=== PATIENT | male | born 1970 | race American Indian/Alaskan Native ===

== ENCOUNTER 2017-02-10 14:06 | Observation (INO) | payer SELFPAY ==
[2017-02-10] MEDS ORDERED: Sodium Chloride 0.9% 10 ML Syringe FLUSH PRN (14:08)
[2017-02-10] MEDS ORDERED: Famotidine 20 MG/2 ML SDV IVPUSH ONE (14:08)
[2017-02-10] MEDS ORDERED: Sodium Chloride 0.9% 1,000 ML IV ONE (14:08)
[2017-02-10] MEDS ORDERED: Aspirin 81 MG Tab.Chew PO ONE (14:08)
[2017-02-10] MEDS ORDERED: Sodium Chloride 0.9% 2.5 ML Syringe FLUSH PRN (14:08)
[2017-02-10] MEDS ORDERED: Aspirin 81 MG Tab.Chew ONE (14:12)
--- NOTE | 2017-02-10 14:14 | EDM.PDOC ---
ED HISTORY OF PRESENT ILLNESS - General Chief Complaint: Cardiovascular Problem Stated Complaint: CHEST PAIN Time Seen by Provider: 02/10/17 14:13 Source of Information: Reports: Patient History Limitations: Reports: No limitations - History of Present Illness INITIAL COMMENTS - FREE TEXT/NARRATIVE: HISTORY AND PHYSICAL: [46-year-old male who presents with chest that is midsternal He has had a previous PR when he was under anesthesia] History of Present Illness: [Shortness of breath the pain started last night Returned this morning substernal chest pain not being relieved as not taking any medication at home States that he used to be and his kept on top of his meds now he doesn't take anything He was on blood pressure medications but stopped 2 years ago. 46-year-old gentleman who has history of having PR during surgery History of hypertension and COPD. He has a local doctor but has not seen him in some time History 2 prior kidney stone which passed spontaneously at home He has been seen here for disc disease at the L5-S1 He denies any trauma falls or neurovascular changes no bowel or bladder loss No blood in his stool No urine retention] Continues to smoke half a pack daily 30+ years Review of Systems: As per history of present illness and below otherwise all systems reviewed and negative. Past medical history: As per history of present illness and as reviewed below otherwise noncontributory. Surgical history: As per history of present illness and as reviewed below otherwise noncontributory. Social history: No reported history of drug or alcohol abuse. Family history: As per history of present illness and as reviewed below otherwise noncontributory. Physical exam: Alert oriented gentleman who has discussed this appropriately and follows directions of the staff HEENT: Atraumatic, normocehpalic, pupils reactive, negative for conjunctival pallor or scleral icterus, mucous membranes moist, throat clear, neck supple, nontender, trachea midline. Lungs: Clear to auscultation, breath sounds equal bilaterally, chest non tender. Very diminished breath sounds Heart: S1S2, regular, negative for clicks, rubs, or JVD. Abdomen: Soft, nondistended, nontender. Negative for masses or hepatossplenmegaly. Negative for costovertebral tenderness. Pelvis: Stable nontender. Genitourinary: Deferred. Rectal: Deferred Extremities: Atraumatic, negative for cords or calf pain. Neurovascular unremarkable. Neuro: Awake, alert, oriented. Cranial nerves II through XII unremarkable. Cerebellum unremarkable. Motor and sensory unremarkable throughout. Exam nonfocal. This case with ; who has accepted patient for observation on telemetry Diagnostics: [CBC CMP troponin amylase lipase chest XRAY, BNP EKG] Therapeutics: [Nitrostat/ ASA] Impression: [Atypical chest pain R/O ACS] Plan: Observation on telemetry[] Definitive disposition and diagnosis as appropriate pending reevaluation and review of above. Timing/Duration: Reports: Hour(s): Severity: moderate Location, General: Reports: chest Quality: Reports: Stabbing Improves with: Reports: None Associated Symptoms (General): Reports: shortness of breath - Related Data Allergies/ADRs: Allergies Allergy/AdvReac Type Severity Reaction Status Date / Time morphine Allergy Difficulty Verified 02/10/17 14:11 Swallowing Home Meds: Home Meds . [No Known Home Meds] 12/07/14 [History] Past Medical History - Past Surgical History Other HEENT Surgeries/Procedures: right mastoidectomy Social & Family History - Tobacco Use Smoking Status *Q: Current Every Day Smoker Years of Tobacco use: 30 - Alcohol Use Days Per Week of Alcohol Use: 0 - Recreational Drug Use Recreational Drug Use: No Recreational Drug Type: Reports: Marijuana/Hashish, Methamphetamine Recreational Drug Use Frequency: Not Used In Over 6 Months ED ROS GENERAL - Review of Systems Review Of Systems: ROS reveals no pertinent complaints other than HPI. ED EXAM, GENERAL - Physical Exam Exam: See Below (see dictation) EKG INTERPRETATION EKG Date: 02/10/17 Rhythm: other (Sinus tachycardia) [place]: LAD-left axis deviation (Borderline) P-wave: present QRS: normal ST-T: normal QT: normal Comparison: NA - no prior EKG Course - Vital Signs Last Recorded V/S: Last Vital Signs Temp 37.3 C 02/10/17 14:11 Pulse 105 H 02/10/17 14:21 Resp 20 02/10/17 14:11 BP 147/90 H 02/10/17 14:28 Pulse Ox 94 L 02/10/17 14:11 - Orders/Labs/Meds Orders: Active Orders 24 hr Category Date Time Status Cardiac Monitoring [RC] . DIRECTED Care 02/10/17 14:08 Active EKG Documentation Completion [RC] STAT Care 02/10/17 14:08 Active Oxygen Therapy [RC] ASDIRECTED Care 02/10/17 14:08 Active RT Aerosol Therapy [RC] ASDIRECTED Care 02/10/17 14:29 Active Chest 1V Frontal [CR] Stat Exams 02/10/17 14:08 Taken B-TYPE NATRIURETIC PEPTIDE,BNP [CHEM] Stat Lab 02/10/17 14:12 Received UA W/MICROSCOPIC [URIN] Stat Lab 02/10/17 14:08 Uncollected Sodium Chloride 0.9% [Saline Flush] Med 02/10/17 14:08 Active 10 ml FLUSH ASDIRECTED PRN Sodium Chloride 0.9% [Saline Flush] Med 02/10/17 14:08 Active 2.5 ml FLUSH ASDIRECTED PRN Saline Lock Insert [OM.PC] Stat Oth 02/10/17 14:08 Ordered Medication Orders Sodium Chloride (Saline Flush) 10 ml FLUSH ASDIRECTED PRN PRN Reason: Keep Vein Open Last Admin: 02/10/17 14:20 Dose: 10 ml Sodium Chloride (Saline Flush) 2.5 ml FLUSH ASDIRECTED PRN PRN Reason: Keep Vein Open Last Admin: 02/10/17 14:20 Dose: 2.5 ml Labs: Laboratory Tests 02/10/17 02/10/17 02/10/17 Range/Units 14:12 14:12 14:12 WBC 7.81 (4.0-11.0) K/uL RBC 5.08 (4.50-5.90) M/uL Hgb 15.3 (13.0-17.0) g/dL Hct 44.8 (38.0-50.0) % MCV 88.2 (80.0-98.0) fL MCH 30.1 (27.0-32.0) pg MCHC 34.2 (31.0-37.0) g/dL RDW Std Deviation 45.4 (28.0-62.0) fl RDW Coeff of [place] 14 (11.0-15.0) % Plt Count 329 (150-400) K/uL MPV 9.90 (7.40-12.00) fL Neut % (Auto) 64.6 (48.0-80.0) % Lymph % (Auto) 25.5 (16.0-40.0) % [place] % (Auto) 7.3 (0.0-15.0) % Eos % (Auto) 2.3 (0.0-7.0) % Baso % (Auto) 0.3 (0.0-1.5) % Neut # (Auto) 5.1 (1.4-5.7) K/uL Lymph # (Auto) 2.0 (0.6-2.4) K/uL [place] # (Auto) 0.6 (0.0-0.8) K/uL Eos # (Auto) 0.2 (0.0-0.7) K/uL Baso # (Auto) 0.0 (0.0-0.1) K/uL Nucleated RBC % 0.0 /100WBC Nucleated RBCs # 0 K/uL INR 0.98 (0.86-1.11) Sodium 140 (136-146) mmol/L Potassium 4.0 (3.5-5.1) mmol/L Chloride 107 (98-110) mmol/L Carbon Dioxide 22 (21-31) mmol/L BUN 14 (6.0-23.0) mg/dL Creatinine 1.0 (0.6-1.5) mg/dL Est Cr Clr Drug Dosing 95.31 mL/min Estimated GFR (MDRD) > 60.0 ml/min Glucose 108 (60-110) mg/dL Calcium 9.0 (8.8-10.8) mg/dL Total Bilirubin 0.4 (0.1-1.5) mg/dL AST 23 (5-40) IU/L ALT 22 (8-54) IU/L Alkaline Phosphatase 88 (40-150) Troponin I (0.0-0.29) NG/ML Total Protein 7.4 (6.0-8.0) g/dL Albumin 4.3 (3.5-5.0) g/dL Globulin 3.1 (2.0-3.5) g/dL Albumin/Globulin Ratio 1.4 (1.3-2.8) Amylase 44 (10-90) U/L Lipase 23 (7-80) U/L 02/10/17 Range/Units 14:12 WBC (4.0-11.0) K/uL RBC (4.50-5.90) M/uL Hgb (13.0-17.0) g/dL Hct (38.0-50.0) % MCV (80.0-98.0) fL MCH (27.0-32.0) pg MCHC (31.0-37.0) g/dL RDW Std Deviation (28.0-62.0) fl RDW Coeff of [place] (11.0-15.0) % Plt Count (150-400) K/uL MPV (7.40-12.00) fL Neut % (Auto) (48.0-80.0) % Lymph % (Auto) (16.0-40.0) % [place] % (Auto) (0.0-15.0) % Eos % (Auto) (0.0-7.0) % Baso % (Auto) (0.0-1.5) % Neut # (Auto) (1.4-5.7) K/uL Lymph # (Auto) (0.6-2.4) K/uL [place] # (Auto) (0.0-0.8) K/uL Eos # (Auto) (0.0-0.7) K/uL Baso # (Auto) (0.0-0.1) K/uL Nucleated RBC % /100WBC Nucleated RBCs # K/uL INR (0.86-1.11) Sodium (136-146) mmol/L Potassium (3.5-5.1) mmol/L Chloride (98-110) mmol/L Carbon Dioxide (21-31) mmol/L BUN (6.0-23.0) mg/dL Creatinine (0.6-1.5) mg/dL Est Cr Clr Drug Dosing mL/min Estimated GFR (MDRD) ml/min Glucose (60-110) mg/dL Calcium (8.8-10.8) mg/dL Total Bilirubin (0.1-1.5) mg/dL AST (5-40) IU/L ALT (8-54) IU/L Alkaline Phosphatase (40-150) Troponin I < 0.10 (0.0-0.29) NG/ML Total Protein (6.0-8.0) g/dL Albumin (3.5-5.0) g/dL Globulin (2.0-3.5) g/dL Albumin/Globulin Ratio (1.3-2.8) Amylase (10-90) U/L Lipase (7-80) U/L Meds: Medications Generic Name Dose Route Start Last Admin Trade Name Carlos PRN Reason Stop Dose Admin Sodium Chloride 10 ml 02/10/17 14:08 02/10/17 14:20 Saline Flush FLUSH 10 ml ASDIRECTED PRN Administration Keep Vein Open Sodium Chloride 2.5 ml 02/10/17 14:08 02/10/17 14:20 Saline Flush FLUSH 2.5 ml ASDIRECTED PRN Administration Keep Vein Open Discontinued Medications Generic Name Dose Route Start Last Admin Trade Name Carlos PRN Reason Stop Dose Admin Albuterol/Ipratropium 3 ml 02/10/17 14:29 02/10/17 14:38 Duoneb 3.0-0.5 Mg/3 Ml NEB 02/10/17 14:30 3 ml ONETIME ONE Administration Aspirin 324 mg 02/10/17 14:08 02/10/17 14:15 Aspirin PO 02/10/17 14:09 324 mg ONETIME ONE Administration Aspirin Confirm 02/10/17 14:12 02/10/17 14:21 Aspirin Administered 02/10/17 14:13 Not Given Dose 324 mg .ROUTE .STK-MED ONE Famotidine 20 mg 02/10/17 14:08 02/10/17 14:17 Pepcid IVPUSH 02/10/17 14:09 20 mg ONETIME ONE Administration Sodium Chloride 1,000 mls @ 999 mls/hr 02/10/17 14:08 02/10/17 14:19 Normal Saline IV 02/10/17 15:08 999 mls/hr .Bolus ONE Administration Nitroglycerin Confirm 02/10/17 14:12 Nitrostat Administered 02/10/17 14:13 Dose 1.2 mg .ROUTE .STK-MED ONE Nitroglycerin 0.4 mg 02/10/17 14:23 02/10/17 14:28 Nitrostat SL 02/10/17 14:34 0.4 mg Q5M PRN Administration Chest Pain Departure - Departure Time of Disposition: 15:23 Disposition: Refer to Observation Condition: good Clinical Impression: Chest pain Qualifiers: Chest pain type: other chest pain Qualified Code(s): R07.89 - Other chest pain ; R07.8 - Other chest pain Forms: ED Department Discharge - My Orders Last 24 Hours: My Active Orders 02/10/17 14:08 Cardiac Monitoring [RC] . DIRECTED EKG Documentation Completion [RC] STAT Oxygen Therapy [RC] ASDIRECTED Chest 1V Frontal [CR] Stat UA W/MICROSCOPIC [URIN] Stat Sodium Chloride 0.9% [Saline Flush] 10 ml FLUSH ASDIRECTED PRN Sodium Chloride 0.9% [Saline Flush] 2.5 ml FLUSH ASDIRECTED PRN Saline Lock Insert [OM.PC] Stat 02/10/17 14:12 B-TYPE NATRIURETIC PEPTIDE,BNP [CHEM] Stat 02/10/17 14:29 RT Aerosol Therapy [RC] ASDIRECTED - Assessment/Plan Last 24 Hours: My Active Orders 02/10/17 14:08 Cardiac Monitoring [RC] . DIRECTED EKG Documentation Completion [RC] STAT Oxygen Therapy [RC] ASDIRECTED Chest 1V Frontal [CR] Stat UA W/MICROSCOPIC [URIN] Stat Sodium Chloride 0.9% [Saline Flush] 10 ml FLUSH ASDIRECTED PRN Sodium Chloride 0.9% [Saline Flush] 2.5 ml FLUSH ASDIRECTED PRN Saline Lock Insert [OM.PC] Stat 02/10/17 14:12 B-TYPE NATRIURETIC PEPTIDE,BNP [CHEM] Stat 02/10/17 14:29 RT Aerosol Therapy [RC] ASDIRECTED
[2017-02-10] MEDS: Nitroglycerin 0.4 MG Tab.SL SL PRN ×3 (14:15→14:28)
[2017-02-10] MEDS: Nitroglycerin 0.4 MG Tab.SL ONE ×2 (14:24→18:38)
[2017-02-10] MEDS ORDERED: Albuterol/Ipratropium 3.0-0.5 MG/3 ML Neb Soln NEB ONE (14:29)
[2017-02-10 14:51] LABS: CHLORIDE,CL 107 mmol/L (98-110); SODIUM,NA 140 mmol/L (136-146)
[2017-02-10] MEDS ORDERED: Ketorolac 30 MG/ML SDV IVPUSH ONE (15:25)
[2017-02-10] MEDS ORDERED: Acetaminophen 325 MG Tab PO PRN (16:37)
[2017-02-10] MEDS ORDERED: Azithromycin 250 MG Tab PO ONE (21:39)
[2017-02-10] MEDS ORDERED: Albuterol/Ipratropium 3.0-0.5 MG/3 ML Neb Soln NEB PRN (21:39)
--- NOTE | 2017-02-10 21:45 | PCM.HP ---
H&P History of Present Illness - History of Present Illness Initial Comments - Free Text/Narative: 46 yo smoker with pmh of asthma, HTN and [place] in 2007 during mastoidectomy. He presents with two day history of productive cough, shortness of breath, sinus and chest congestion. He reports fevers and chills. This morning he reports a sore pain in the chest that radiates to both arms. chest Pain Score (Numeric/FACES): 2 - Related Data Allergies/Adverse Reactions: Allergies Allergy/AdvReac Type Severity Reaction Status Date / Time morphine Allergy Difficulty Verified 02/10/17 14:11 Swallowing Home Medications: Home Meds Albuterol [Ventolin HFA] 8 gm INH Q4H #1 inhaler 02/11/17 [Rx] Azithromycin [IJD: Azithromycin] 250 mg PO DAILY #4 tab 02/11/17 [Rx] Fluticasone/Salmeterol [Advair Diskus 250-50] 1 puff INH BID #1 inhaler [Rx] Naproxen 500 mg PO BID PRN #14 tablet 02/11/17 [Rx] Past Medical History Cardiovascular History: Reports: Hypertension, [place] Respiratory History: Reports: Asthma, Other (see below) Other Respiratory History: meningitis over 5 years ago, almost Genitourinary History: Reports: Other (see below) Other Genitourinary History: stones Musculoskeletal History: Reports: Back pain, chronic, Other (see below) Other Musculoskeletal History: herniated disc and hx of fractured vertebrae Neurological History: Reports: Migraines, Other (see below) Other Neuro History: migraines followed the meningitis Hematologic History: Reports: Anesthesia reaction, Other (see below) Other Hematologic History: [place] under anesthesia - Infectious Disease History Infectious Disease History: Reports: Meningitis Other Infectious Disease History: 5+ years - Past Surgical History Other HEENT Surgeries/Procedures: right mastoidectomy GI Surgical History: Reports: Appendectomy, Cholecystectomy Social & Family History - Family History Family Medical History: Noncontributory - Tobacco Use Smoking Status *Q: Current Every Day Smoker Years of Tobacco use: 30 Packs/Tins Daily: 1.5 - Caffeine Use Caffeine Use: Reports: Coffee - Alcohol Use Days Per Week of Alcohol Use: 0 - Recreational Drug Use Recreational Drug Use: No Recreational Drug Type: Reports: Marijuana/Hashish Recreational Drug Use Frequency: Socially H&P Review of Systems - Review of Systems: Review Of Systems: See Below General: Reports: no symptoms HEENT: Reports: no symptoms Pulmonary: Reports: Shortness of Breath, Wheezing, Cough, Sputum Cardiovascular: Reports: chest pain. Denies: palpitations, dyspnea on exertion , orthopnea, edema Gastrointestinal: Reports: No symptoms Genitourinary: Reports: no symptoms Musculoskeletal: Reports: no symptoms Skin: Reports: no symptoms Psychiatric: Reports: no symptoms Neurological: Reports: No Symptoms Hematologic/Lymphatic: Reports: no symptoms Immunologic: Reports: no symptoms Exam - Exam Exam: See Below - Vital Signs Vital Signs: Last Vital Signs Temp 36.8 C 02/10/17 16:45 Pulse 87 02/10/17 16:45 Resp 16 02/10/17 16:45 BP 135/80 02/10/17 18:38 Pulse Ox 95 02/10/17 16:45 Weight: 87.09 kg - Exam General: alert, oriented, 4 Neck: supple, trachea midline, 2 Lungs: Clear to auscultation, Normal respiratory effort Cardiovascular: regular rate, regular rhythm Abdomen: Normal Bowel Sounds, Soft Extremities: 3, normal inspection, 10 Skin: warm, dry, intact - Patient Data Lab Results last 24 hrs: Laboratory Results - last 24 hr 02/10/17 02/10/17 Range/Units 15:40 19:57 Troponin I < 0.10 (0.0-0.29) NG/ML Urine Color YELLOW Urine Appearance CLEAR Urine pH 6.5 (5.0-8.0) Ur Specific [place] 1.020 (1.001-1.035) Urine Protein TRACE (NEGATIVE) mg/dL Urine Glucose (UA) NEGATIVE (NEGATIVE) mg/dL Urine Ketones NEGATIVE (NEGATIVE) mg/dL Urine Occult Blood LARGE H (NEGATIVE) Urine Nitrite NEGATIVE (NEGATIVE) Urine Bilirubin NEGATIVE (NEGATIVE) Urine Urobilinogen 0.2 (<2.0) EU/dL Ur Leukocyte Esterase NEGATIVE (NEGATIVE) Urine RBC 15-20 (0-2/HPF) Urine WBC 0-1 (0-5/HPF) Ur Epithelial Cells RARE (NONE-FEW) Urine Bacteria RARE (NEGATIVE) Result Diagrams: 02/10/17 14:12 02/10/17 14:12 Imaging Impressions last 24 hrs: CXR: lungs are clear, normal heart size EKG INTERPRETATION Rhythm: other (sinus tach) Rate (beats/min): 112 P-wave: present QRS: normal ST-T: normal *Q Meaningful Use (ADM) - VTE *Q VTE Criteria *Q: - Stroke *Q Stroke Criteria *Q: - AMI *Q AMI Criteria *Q: Problem List Initiated/Reviewed/Updated: Yes Orders Last 24hrs: Active Orders 24 hr Category Date Time Status RT Aerosol Therapy [RC] ASDIRECTED Care 02/10/17 21:39 Ordered Telemetry Monitoring [Cardiac Monitoring] [RC] . Care 02/10/17 16:38 Active DIRECTED Heart Healthy Diet [DIET] Diet 02/10/17 Dinner Active GLYCOSYLATED HEMOGLOBIN,HGBA1C [CHEM] AM Lab 02/11/17 05:11 Ordered LIPID PANEL [CHEM] AM Lab 02/11/17 05:11 Ordered TROPONIN I [CHEM] Q6H Lab 02/11/17 02:00 Ordered Acetaminophen [Tylenol] Med 02/10/17 16:37 Active 650 mg PO Q4H PRN Albuterol/Ipratropium [DuoNeb 3.0-0.5 MG/3 ML] Med 02/10/17 21:39 Ordered 3 ml NEB Q4HRRT PRN Azithromycin [Zithromax] Med 02/10/17 21:39 Once 500 mg PO Q24H ONE Medication Orders Acetaminophen (Tylenol) 650 mg PO Q4H PRN PRN Reason: Pain Azithromycin (Zithromax) 500 mg PO Q24H ONE Stop: 02/10/17 21:40 Sodium Chloride (Saline Flush) 10 ml FLUSH ASDIRECTED PRN PRN Reason: Keep Vein Open Last Admin: 02/10/17 14:20 Dose: 10 ml Sodium Chloride (Saline Flush) 2.5 ml FLUSH ASDIRECTED PRN PRN Reason: Keep Vein Open Last Admin: 02/10/17 14:20 Dose: 2.5 ml Assessment/Plan Comment:: 46 yo male admitted for chest pain. We will rule out acute coronary syndrome with serial cardiac enzymes. I suspect patient has acute bronchitis and will treat with duonebs and azithromycin
[2017-02-10] MEDS: Fluticasone/Salmeterol 250-50 MCG Inhalation Powder 14/Diskus INH SCH (22:06)
[2017-02-11 08:03] VITALS: BP 132/88
[2017-02-11] MEDS: Fluticasone/Salmeterol 250-50 MCG Inhalation Powder 14/Diskus INH SCH (08:52)
--- NOTE | 2017-02-11 09:39 | PCM.DCSUM1 ---
<Hortencia,Waylon - Last Filed: 02/11/17 10:14> Discharge Summary - Hospital Course Free Text/Narrative:: 46 yo male with history of COPD, HTN & OK in 2007 admitted to observation on 02/10 for chest pain. Chest pain resolved overnight. He is overnight vitals remained stable, Overnight telemetry was NSR, CXR showed no acute changes, Serial Troponis were negative and chest pain. He was treated for Acute Bronchitis with Azithromycin PO and Duonebs. He is ambulatory, tolerating po intake, urinating adequately and vitals are stable. Patient was discharged on 02/11/17. He was sent home with prescription for 4 days of Azithromycin to complete course for Acute Bronchitis. Patient also complains of headaches for which he was prescibed Naproxen 500 mg BID for 14 days prn for headaches. He will f/u with Dr. Burnett to establish care as pcp. - Discharge Data Discharge Date: 02/11/17 Discharge Disposition: Home, Self-Care 01 Condition: Good - Patient Instructions Diet: Usual Diet as Tolerated Activity: As Tolerated Notify Provider of: Fever, Increased Pain, Nausea and/or Vomiting - Discharge Plan Prescriptions/Med Rec: Albuterol [Ventolin HFA] 8 gm INH Q4H #1 inhaler Azithromycin [IJD: Azithromycin] 250 mg PO DAILY #4 tab Fluticasone/Salmeterol [Advair Diskus 250-50] 1 puff INH BID #1 inhaler Naproxen 500 mg PO BID PRN #14 tablet PRN Reason: Headache Home Medications: Home Meds Albuterol [Ventolin HFA] 8 gm INH Q4H #1 inhaler 02/11/17 [Rx] Azithromycin [IJD: Azithromycin] 250 mg PO DAILY #4 tab 02/11/17 [Rx] Fluticasone/Salmeterol [Advair Diskus 250-50] 1 puff INH BID #1 inhaler [Rx] Naproxen 500 mg PO BID PRN #14 tablet 02/11/17 [Rx] Patient Handouts: Fluticasone; Salmeterol inhalation powder, Albuterol inhalation aerosol, Naproxen Sodium oral tablet, extended-release, Azithromycin tablets - Discharge Summary/Plan Comment DC Time >30 min.: No - Patient Data Vitals - Most Recent: Last Vital Signs Temp 36.6 C 05/08/17 08:02 Pulse 79 02/11/17 08:02 Resp 18 02/11/17 08:02 BP 132/88 02/11/17 08:02 Pulse Ox 95 02/11/17 08:02 Weight - Most Recent: 87.09 kg I&O - Last 24 hours: Intake & Output 02/10/17 02/11/17 02/11/17 22:59 06:59 14:59 Intake Total 350 Output Total 350 Balance 0 Lab Results - Last 24 hrs: Laboratory Results - last 24 hr 02/10/17 02/10/17 02/11/17 Range/Units 15:40 19:57 02:05 Hemoglobin A1c (0.0-6.0) % Troponin I < 0.10 < 0.10 (0.0-0.29) NG/ML Triglycerides (10-190) mg/dL Cholesterol (131-240) mg/dL LDL Cholesterol, Calc (60-180) mg/dL VLDL Cholesterol (5-55) mg/dL HDL Cholesterol (40-80) mg/dL Cholesterol/HDL Ratio (3.3-6.0) Urine Color YELLOW Urine Appearance CLEAR Urine pH 6.5 (5.0-8.0) Ur Specific [place] 1.020 (1.001-1.035) Urine Protein TRACE (NEGATIVE) mg/dL Urine Glucose (UA) NEGATIVE (NEGATIVE) mg/dL Urine Ketones NEGATIVE (NEGATIVE) mg/dL Urine Occult Blood LARGE H (NEGATIVE) Urine Nitrite NEGATIVE (NEGATIVE) Urine Bilirubin NEGATIVE (NEGATIVE) Urine Urobilinogen 0.2 (<2.0) EU/dL Ur Leukocyte Esterase NEGATIVE (NEGATIVE) Urine RBC 15-20 (0-2/HPF) Urine WBC 0-1 (0-5/HPF) Ur Epithelial Cells RARE (NONE-FEW) Urine Bacteria RARE (NEGATIVE) 02/11/17 02/11/17 Range/Units 02:05 02:05 Hemoglobin A1c 6.4 H (0.0-6.0) % Troponin I (0.0-0.29) NG/ML Triglycerides 209 H (10-190) mg/dL Cholesterol 237 (131-240) mg/dL LDL Cholesterol, Calc 166 (60-180) mg/dL VLDL Cholesterol 42 (5-55) mg/dL HDL Cholesterol 29 L (40-80) mg/dL Cholesterol/HDL Ratio 8.2 H (3.3-6.0) Urine Color Urine Appearance Urine pH (5.0-8.0) Ur Specific [place] (1.001-1.035) Urine Protein (NEGATIVE) mg/dL Urine Glucose (UA) (NEGATIVE) mg/dL Urine Ketones (NEGATIVE) mg/dL Urine Occult Blood (NEGATIVE) Urine Nitrite (NEGATIVE) Urine Bilirubin (NEGATIVE) Urine Urobilinogen (<2.0) EU/dL Ur Leukocyte Esterase (NEGATIVE) Urine RBC (0-2/HPF) Urine WBC (0-5/HPF) Ur Epithelial Cells (NONE-FEW) Urine Bacteria (NEGATIVE) Med Orders - Current: Current Medications Acetaminophen (Tylenol) 650 mg PO Q4H PRN PRN Reason: Pain Albuterol/Ipratropium (Duoneb 3.0-0.5 Mg/3 Ml) 3 ml NEB Q4HRRT PRN PRN Reason: Wheezing Fluticasone/Salmeterol (Advair Diskus 250-50) 1 puff INH BID ROSALIA Last Admin: 02/11/17 08:52 Dose: 1 puff Sodium Chloride (Saline Flush) 10 ml FLUSH ASDIRECTED PRN PRN Reason: Keep Vein Open Last Admin: 02/10/17 14:20 Dose: 10 ml Sodium Chloride (Saline Flush) 2.5 ml FLUSH ASDIRECTED PRN PRN Reason: Keep Vein Open Last Admin: 02/10/17 14:20 Dose: 2.5 ml Discontinued Medications Albuterol/Ipratropium (Duoneb 3.0-0.5 Mg/3 Ml) 3 ml NEB ONETIME ONE Stop: 02/10/17 14:30 Last Admin: 02/10/17 14:38 Dose: 3 ml Aspirin (Aspirin) 324 mg PO ONETIME ONE Stop: 02/10/17 14:09 Last Admin: 02/10/17 14:15 Dose: 324 mg Aspirin (Aspirin) Confirm Administered Dose 324 mg .ROUTE .STK-MED ONE Stop: 02/10/17 14:13 Last Admin: 02/10/17 14:21 Dose: Not Given Azithromycin (Zithromax) 500 mg PO Q24H ONE Stop: 02/10/17 21:40 Last Admin: 02/10/17 22:06 Dose: 500 mg Famotidine (Pepcid) 20 mg IVPUSH ONETIME ONE Stop: 02/10/17 14:09 Last Admin: 02/10/17 14:17 Dose: 20 mg Sodium Chloride (Normal Saline) 1,000 mls @ 999 mls/hr IV .Bolus ONE Stop: 02/10/17 15:08 Last Admin: 02/10/17 14:19 Dose: 999 mls/hr Ketorolac Tromethamine (Toradol) 30 mg IVPUSH ONETIME ONE Stop: 02/10/17 15:26 Last Admin: 02/10/17 16:03 Dose: 30 mg Nitroglycerin (Nitrostat) Confirm Administered Dose 1.2 mg .ROUTE .STK-MED ONE Stop: 02/10/17 14:13 Last Admin: 02/10/17 18:38 Dose: Not Given Nitroglycerin (Nitrostat) 0.4 mg SL Q5M PRN PRN Reason: Chest Pain Stop: 02/10/17 14:34 Last Admin: 02/10/17 14:28 Dose: 0.4 mg - Exam General: Reports: alert, oriented HEENT: Reports: Pupils equal, Pupils reactive, EOMI Neck: Reports: supple, no JVD Lungs: Reports: Normal respiratory effort, Decreased breath sounds, Other ( scattered BL crackles and wheezes, moderate to good aeration ) *Q Meaningful Use (DIS) - VTE *Q VTE Criteria *Q: - Stroke *Q Stroke Criteria *Q: - AMI *Q AMI Criteria *Q: <Guy Farooq J - Last Filed: 02/12/17 11:15> - Patient Data Vitals - Most Recent: Last Vital Signs Temp 36.6 C 02/11/17 08:02 Pulse 79 02/11/17 08:02 Resp 18 02/11/17 08:02 BP 132/88 02/11/17 08:02 Pulse Ox 95 02/11/17 08:02 Med Orders - Current: Current Medications Discontinued Medications Acetaminophen (Tylenol) 650 mg PO Q4H PRN PRN Reason: Pain Albuterol/Ipratropium (Duoneb 3.0-0.5 Mg/3 Ml) 3 ml NEB ONETIME ONE Stop: 02/10/17 14:30 Last Admin: 02/10/17 14:38 Dose: 3 ml Albuterol/Ipratropium (Duoneb 3.0-0.5 Mg/3 Ml) 3 ml NEB Q4HRRT PRN PRN Reason: Wheezing Aspirin (Aspirin) 324 mg PO ONETIME ONE Stop: 02/10/17 14:09 Last Admin: 02/10/17 14:15 Dose: 324 mg Aspirin (Aspirin) Confirm Administered Dose 324 mg .ROUTE .STK-MED ONE Stop: 02/10/17 14:13 Last Admin: 02/10/17 14:21 Dose: Not Given Azithromycin (Zithromax) 500 mg PO Q24H ONE Stop: 02/10/17 21:40 Last Admin: 02/10/17 22:06 Dose: 500 mg Famotidine (Pepcid) 20 mg IVPUSH ONETIME ONE Stop: 02/10/17 14:09 Last Admin: 02/10/17 14:17 Dose: 20 mg Sodium Chloride (Normal Saline) 1,000 mls @ 999 mls/hr IV .Bolus ONE Stop: 02/10/17 15:08 Last Admin: 02/10/17 14:19 Dose: 999 mls/hr Ketorolac Tromethamine (Toradol) 30 mg IVPUSH ONETIME ONE Stop: 02/10/17 15:26 Last Admin: 02/10/17 16:03 Dose: 30 mg Nitroglycerin (Nitrostat) Confirm Administered Dose 1.2 mg .ROUTE .STK-MED ONE Stop: 02/10/17 14:13 Last Admin: 02/10/17 18:38 Dose: Not Given Nitroglycerin (Nitrostat) 0.4 mg SL Q5M PRN PRN Reason: Chest Pain Stop: 02/10/17 14:34 Last Admin: 02/10/17 14:28 Dose: 0.4 mg Fluticasone/Salmeterol (Advair Diskus 250-50) 1 puff INH BID ROSALIA Last Admin: 02/11/17 08:52 Dose: 1 puff Sodium Chloride (Saline Flush) 10 ml FLUSH ASDIRECTED PRN PRN Reason: Keep Vein Open Last Admin: 02/10/17 14:20 Dose: 10 ml Sodium Chloride (Saline Flush) 2.5 ml FLUSH ASDIRECTED PRN PRN Reason: Keep Vein Open Last Admin: 02/10/17 14:20 Dose: 2.5 ml *Q Meaningful Use (DIS) - VTE *Q VTE Criteria *Q: - Stroke *Q Stroke Criteria *Q: - AMI *Q AMI Criteria *Q: - Free Text/Narrative Note: I have examined the patient. I have discussed findings and treatment plan with resident. I agree with the assessment and plan outlined in the following resident's note.
--- NOTE | 2017-02-12 11:49 | CR ---
EXAM DATE: 02/10/17 PATIENT'S AGE: 46 Patient: NATI GOULD Facility: [place], [place] Site . Site : 1970 Study: XRay Chest [id number]/7/[id number] 2:32:02 PM Ordering Physician: Doctor Jennings Final Report: CHEST 1 VIEW AP INDICATION: Chest pain. IMPRESSION: Normal heart size and vascular pattern. Lungs are clear. No pneumothorax or pleural abnormality. ECG Monitor leads projected over the patient. Dictated by Guevara Francis MD @ Feb 10 2017 2:45PM (Electronic Signature) Report Signed by Proxy. DANA
== END 2017-02-11 10:50 | disposition home or self-care (01) ==
LOC: MW.ED 14:06 → MW.MS 15:29
PROVIDERS: ADMIT Internal Medicine; ATTEND Internal Medicine
DX: J20.9 Acute bronchitis, unspecified (principal); I10 Essential (primary) hypertension; I25.2 Old myocardial infarction; J45.909 Unspecified asthma, uncomplicated; F17.210 Nicotine dependence, cigarettes, uncomplicated; Z79.2 Long term (current) use of antibiotics; Z79.51 Long term (current) use of inhaled steroids; Z79.899 Other long term (current) drug therapy; Z88.5 Allergy status to narcotic agent; Z90.49 Acquired absence of other specified parts of digestive tract; Z90.89 Acquired absence of other organs
CPT/HCPCS: 36415; 71010; 80053; 80061; 81001; 82150; 83036; 83690; 83880; 84484; 85025; 85610; 93005; 94640; 94664; 96361; 96374; 96375; 99285; A9270; G0378; J1885; J7040